=== PATIENT | male | born 1995 | race Caucasian/White ===

== ENCOUNTER 2019-08-28 14:52 | Emergency (ER) | payer BC, OTHER ==
[2019-08-28 15:28] VITALS: BP 131/68; PULSE 65; TEMP 98.8; BMI 26.4
--- NOTE | 2019-08-28 15:40 | PDOC ---
History of Present Illness - General History Source: Patient Exam Limitations: No Limitations - History of Present Illness Initial Comments: 08/28/19 15:43 24y M with no significant PMH presenting to the ED with complaints of laceration to the dorsal aspect of his R hand. 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 He denies numbness, tingling, difficulty with hand movements. He states there was bleeding but placed 2 bandages on. Last tetanus shot was 2y ago for a laceration to the palmar aspect of his L hand. Allergies: Nkda <Kristen Brown - Last Filed: 08/28/19 15:43> <Rajesh Camargo - Last Filed: 08/28/19 16:07> - General Chief Complaint: Injury Stated Complaint: rt hand laceration Time Seen by Provider: 08/28/19 14:57 Past History - Past Medical History COPD: No - Immunization History Immunization Up to Date: Yes - Psycho Social/Smoking Cessation Hx Smoking History: Never smoked Have you smoked in the past 12 months: No Information on smoking cessation initiated: No Hx Alcohol Use: No Drug/Substance Use Hx: No <Kristen Brown - Last Filed: 08/28/19 15:43> <Rajesh Camargo - Last Filed: 08/28/19 16:07> - Past Medical History Allergies/Adverse Reactions: Allergies Allergy/AdvReac Type Severity Reaction Status Date / Time No Known Allergies Allergy Verified 08/28/19 14:53 Home Medications: Ambulatory Orders NK [No Known Home Medication] 08/28/19 Review of Systems - Review of Systems Constitutional: No: Symptoms Reported HEENTM: No: Symptoms Reported Respiratory: No: Symptoms reported Cardiac (ROS): No: Symptoms Reported ABD/GI: No: Symptoms Reported : No: Symptoms Reported Musculoskeletal: No: Symptoms Reported Integumentary: Yes: See HPI Neurological: No: Symptoms reported <Kristen Brown - Last Filed: 08/28/19 15:43> *Physical Exam - Vital Signs Last Vital Signs Temp Pulse Resp BP Pulse Ox 98.8 F 65 20 131/68 100 08/28/19 14:53 08/28/19 14:53 08/28/19 14:53 08/28/19 14:53 08/28/19 14:53 - Physical Exam General Appearance: Yes: Nourished, Appropriately Dressed. No: Apparent Distress HEENT: positive: EOMI Comments:: 08/28/19 15:45 radial pulses 2+ Extremity: positive: Normal Capillary Refill, Other (Full ROM of R hand digits. ) Integumentary: positive: Normal Color, Dry, Warm, Other (2cm superficial lacertion to dorsal aspect of R hand. No tendons visible) Neurologic: positive: Alert, Other (normal sensation to digits of R hand) <Kristen Brown - Last Filed: 08/28/19 15:43> - Vital Signs Last Vital Signs Temp Pulse Resp BP Pulse Ox 98.8 F 65 20 131/68 100 08/28/19 14:53 08/28/19 14:53 08/28/19 14:53 08/28/19 14:53 08/28/19 14:53 <Rajesh Camargo - Last Filed: 08/28/19 16:07> Procedures - Laceration/Wound Repair Right Dorsal Hand Wound Length: to 2.5 cm Wound Explored: clean, no foreign body present Wound's Depth, Shape: superficial Irrigated w/ Saline: No Anesthesia: 1% Lidocaine Amount of Anesthetic (ccs): 2 Wound Repaired With: Sutures Suture Size/Type: 5:0 Number of Sutures: 5 <Kristen Brown - Last Filed: 08/28/19 15:43> Medical Decision Making - Medical Decision Making 08/28/19 15:47 24y M presenting to ED for laceration. See procedure note. Wound irrigated with tap water from sink. pt able to move fingers and hand without difficulty. Safe for dc home. Given return precautions. Does not require antibiotics or xray at this time. <Kristen Brown - Last Filed: 08/28/19 15:43> Discharge - Discharge Information Problems reviewed: Yes - Admission No <Kristen Brown - Last Filed: 08/28/19 15:43> <Rajesh Camargo - Last Filed: 08/28/19 16:07> - Discharge Information Clinical Impression/Diagnosis: Laceration, Hand injury, Accident involving knife Condition: Improved Disposition: HOME - Patient Discharge Instructions Patient Printed Discharge Instructions: DI for Laceration Repair Additional Instructions: You were seen in the emergency room today for a laceration to the back part of your right hand. It was repaired with 5 stitches. This can be removed in 10 days. You can come back here, go to another ER, urgent care or your doctor's office. It will appear more swollen and tender tomorrow. This is normal. You can take ibuprofen or Tylenol for the pain as needed. Keep the area clean and dry. You can clean it with water and mild soap only. Come back to the emergency room if the wound is oozing, appears infected or if any new concerning symptom develops. Thank you
--- NOTE | 2019-08-28 15:57 | PDOC ---
Attending Attestation - Resident Resident Name: Kristen Brown - ED Attending Attestation I have performed the following: I have examined & evaluated the patient, The case was reviewed & discussed with the resident, I agree w/resident's findings & plan, Exceptions are as noted - HPI HPI: 08/28/19 16:02 Agree with resident HPI - Physicial Exam PE: 08/28/19 16:02 GENERAL: Awake, alert, and fully oriented, in no acute distress EYES: Sclera anicteric, conjunctiva clear LUNGS: Breath sounds equal, clear to auscultation bilaterally. No wheezes, and no crackles HEART: Regular rate and rhythm, normal S1 and S2, no murmurs, rubs or gallops ABDOMEN: Soft, nontender, normoactive bowel sounds. No guarding, no rebound. No masses EXTREMITIES: R hand with normal strength extension, flexion and abduction of all digits. Normal distal sensation. WWP. NEUROLOGICAL: Normal speech, cranial nerves intact, equal strength and sensation b/l SKIN: 2cm linear hemostatic superficial laceration to mid dorsal area of R hand. Good approximation. - Medical Decision Making 08/28/19 16:05 24yo M presents to the ED with R dorsal hand laceration See Dr. Brown's note for details R hand NVI Tdap updated Pt to return in 10 days for suture removal He is clinically stalble for DC home I discussed the physical exam findings, ancillary test results and final diagnoses with the patient. I answered all of the patient's questions. The patient was satisfied with the care received and felt comfortable with the discharge plan and treatment plan. The patient will call their primary care physician within 24 hours to arrange follow-up and will return to the Emergency Department with any new, persistent or worsening symptoms.
== END 2019-08-28 15:40 | disposition home or self-care (01) ==
LOC: FER 14:52
PROC: 0HQFXZZ Repair Right Hand Skin, External Approach (ICD-10-PCS; principal; 2019-08-28)
DX: S61.411A Laceration without foreign body of right hand, initial encounter (principal); W26.0XXA Contact with knife, initial encounter; Y93.G1 Activity, food preparation and clean up; Y92.89 Other specified places as the place of occurrence of the external cause; Y99.0 Civilian activity done for income or pay
CPT/HCPCS: 99281-25

== ENCOUNTER 2019-09-08 18:06 | Emergency (ER) | payer SELFPAY ==
[2019-09-08 18:16] VITALS: BP 157/109; PULSE 73; TEMP 99; BMI 26.4
--- NOTE | 2019-09-08 18:19 | PDOC ---
Suture Removal/Wound Check HPI - History of Present Illness Chief Complaint: Suture/Staple Removal(Here) Stated Complaint: SUTURE REMOVAL Time Seen by Provider: 09/08/19 18:14 History Source: Yes: Patient Exam Limitations: Yes: No Limitations - Previous ED Treatment Type of procedure performed on last visit: Yes: Laceration Repair Tetanus Immunization: Yes: Up to Date Antibiotics Prescribed: No - Onset of Previous Treatment Comment:: 09/08/19 18:14 24 y/o male here for sutures to be removed on right hand placed 11 days ago. Patient cut hand with a knife. Redness has gone down. No pain or swelling. Feels fine otherwise. Past History - Past Medical History Allergies/Adverse Reactions: Allergies Allergy/AdvReac Type Severity Reaction Status Date / Time No Known Allergies Allergy Verified 08/28/19 14:53 Home Medications: Ambulatory Orders NK [No Known Home Medication] 08/28/19 COPD: No - Immunization History Immunization Up to Date: Yes - Psycho Social/Smoking Cessation Hx Smoking History: Never smoked Have you smoked in the past 12 months: No Hx Alcohol Use: No Drug/Substance Use Hx: No Suture Removal/Wound Check PE - Physical Exam Laceration/Wound Check Symptoms: reports: None Current Severity Level: None Location of Laceration/Wound: right: Hand (dorsum of right hand with [address], no erythema or swelling no tenderness or sign of infection noted) *Review of Systems - Review of Systems Able to Perform ROS?: Yes Constitutional: No: Chills, Fever Respiratory: No: Shortness of Breath Musculoskeletal: No: Joint Pain Integumentary: No: Bruising, Erythema, Pruritus, Rash Neurological: No: Tingling All Other Systems: Reviewed and Negative *Physical Exam - Physical Exam General Appearance: Yes: Nourished, Appropriately Dressed. No: Apparent Distress Respiratory/Chest: positive: Lungs Clear, Normal Breath Sounds Cardiovascular: positive: Regular Rhythm, Regular Rate, S1, S2. negative: Edema , JVD, Murmur Vascular Pulses: Femoral (R): 4+, Femoral (L): 4+, Carotid (R): 4+, Carotid (L) : 4+, Dorsalis-Pedis (R): 4+, Doralis-Pedis (L): 4+ Extremity: positive: Normal Capillary Refill, Normal Range of Motion. negative : Normal Inspection (laceration with no erythema [address]) Integumentary: positive: Normal Color, Dry, Warm Neurologic: positive: deck officer II-XII NML intact, Fully Oriented, Alert, Normal Mood/ Affect, Normal Response, Motor Strength 03/24 Medical Decision Making - Medical Decision Making 09/08/19 18:18 5 sutures removed using #11 blade, pt tolerated procedure well No dehescince or bleeding noted Discharge - Discharge Information Problems reviewed: Yes Clinical Impression/Diagnosis: Encounter for removal of sutures Condition: Good Disposition: HOME - Admission No - Follow up/Referral - Patient Discharge Instructions Patient Printed Discharge Instructions: DI for Suture Removal Additional Instructions: Keep clean If worsen return to ER - Post Discharge Activity
== END 2019-09-08 18:23 | disposition home or self-care (01) ==
LOC: FER 18:06
DX: Z48.02 Encounter for removal of sutures (principal)
CPT/HCPCS: 99281-25

== ENCOUNTER 2019-09-26 16:36 | Emergency (ER) | payer OTHER ==
--- NOTE | 2019-09-26 16:43 | PDOC ---
Attending Attestation - Resident Resident Name: FridaZay sorensen - ED Attending Attestation I have performed the following: I have examined & evaluated the patient, The case was reviewed & discussed with the resident, I agree w/resident's findings & plan, Exceptions are as noted - HPI HPI: 09/26/19 17:39 Patient with avulsion of distal pulp while cutting food. Bleeding. No pain. Tissue fragment was not recovered. - Physicial Exam PE: 09/26/19 17:40 Physical exam: Vital signs normal Right fourth finger: Approximately 7 to 8 mm avulsion of skin and subcutaneous tissue from the distal pulp, just volar to the nail plate. There is bleeding, but the underlying tissue appears healthy. There is no exposed bone. There is no significant nail damage. X-ray shows only soft tissue injury. No injury to the bone is visualized. Coverage of the bone on x-ray appears adequate - Medical Decision Making 09/26/19 17:42 Assessment: Superficial skin avulsion distal pulp right fourth finger Plan: Wound was irrigated with normal saline. Hemostasis with Surgicel. Bacitracin, Xeroform, 2 x 2, and tube gauze for dressing. Rest and elevation recommended and wound check in 2 days. Patient is up-to-date on tetanus immunization. Fully ambulatory and in no pain or distress upon discharge. Motrin for pain as needed.
[2019-09-26 16:46] VITALS: BP 150/98; PULSE 83; TEMP 98.3; BMI 25.7
--- NOTE | 2019-09-26 16:46 | PDOC ---
History of Present Illness - General Chief Complaint: Laceration Stated Complaint: I CUT MY FINGER Time Seen by Provider: 09/26/19 16:42 - History of Present Illness Initial Comments: The pt is a left-handed 24M w/ no reported PMH who presents for evaluation of right ring finger avulsion injury. The pt was chopping bread when he accidentally cut his right distal ring finger. He states the knife was sharp/ clean and he did not bring the cut fragment. He denies any other injury or laceration. His last tetanus was 1 year ago. Denies recent illness, fevers/chills, chest pain, trouble breathing, changes in sensation/strength SH: Denies tobacco and illicit drug use, social EtOH 09/26/19 17:03 Past History - Past Medical History Allergies/Adverse Reactions: Allergies Allergy/AdvReac Type Severity Reaction Status Date / Time No Known Allergies Allergy Verified 09/26/19 16:37 Home Medications: Ambulatory Orders NK [No Known Home Medication] 08/28/19 COPD: No - Immunization History Immunization Up to Date: Yes - Psycho Social/Smoking Cessation Hx Smoking History: Current every day smoker Have you smoked in the past 12 months: No Number of Cigarettes Smoked Daily: 7 Information on smoking cessation initiated: Yes Hx Alcohol Use: Yes (OCASIONAL) Drug/Substance Use Hx: No Review of Systems - Review of Systems Able to Perform ROS?: Yes Comments:: GENERAL/CONSTITUTIONAL: No fever or chills. No weakness HEAD, EYES, EARS, NOSE AND THROAT: No change in vision. No change in hearing. No sore throat CARDIOVASCULAR: No chest pain or shortness of breath RESPIRATORY: Denies cough, hemoptysis GASTROINTESTINAL: No nausea, vomiting, diarrhea or constipation GENITOURINARY: No dysuria, frequency, or change in urination MUSCULOSKELETAL: No joint or muscle swelling or pain. No neck or back pain SKIN: Avulsion of right ring finger NEUROLOGIC: No headache, vertigo, loss of consciousness, or change in strength/ sensation ENDOCRINE: No increased thirst. No abnormal weight change HEMATOLOGIC/LYMPHATIC: No anemia, easy bleeding, or history of blood clots ALLERGIC/IMMUNOLOGIC: No hives or skin allergy 09/26/19 16:45 Is the patient limited Chinese proficient: No *Physical Exam - Vital Signs Last Vital Signs Temp Pulse Resp BP Pulse Ox 98.3 F 83 16 150/98 100 09/26/19 16:36 09/26/19 16:36 09/26/19 16:36 09/26/19 16:36 09/26/19 16:36 - Physical Exam Comments: GENERAL: Awake, alert, and oriented to person/place/time, in no acute distress HEAD: No signs of trauma, normocephalic, atraumatic EYES: PERRLA, EOMI, sclera anicteric, conjunctiva clear ENT: Hearing grossly normal, nares patent, oropharynx clear without exudates. Moist mucosa LUNGS: No distress, speaks in full sentences, clear to auscultation bilaterally HEART: Regular rate and rhythm, normal S1 and S2, no murmurs appreciated, peripheral pulses normal and equal bilaterally ABDOMEN: Soft, nontender, normoactive bowel sounds. No guarding, no rebound EXTREMITIES: Right ring finger avulsion injury w/o exposed bone, slow bleed noted, sensation intact. No other extremity injury noted NEUROLOGICAL: Cranial nerves II through XII grossly intact. Normal speech, normal gait, no focal sensorimotor deficits SKIN: Warm, Dry 09/26/19 17:09 Medical Decision Making - Medical Decision Making The pt is a left-handed 24M w/ no reported PMH who presents for evaluation of right ring finger avulsion injury. ED Course R hand x-ray Tylenol for pain 09/26/19 17:10 XR w/ avulsion injury w/o foreign object or fx Wound dressed with surgiseal, xeroform, bacitracin, and gauze Plan for wound check in 2 days Discharge instructions and return precautions given Patient in agreement and verbalized understanding Dispo: Home 09/26/19 17:51 Discharge - Discharge Information Problems reviewed: Yes Clinical Impression/Diagnosis: Ring avulsion injury of finger of right hand Condition: Stable Disposition: HOME - Admission No - Follow up/Referral Referrals: [facility] [place] [Provider Group] - Patient Discharge Instructions Patient Printed Discharge Instructions: DI for Avulsion Laceration (Not Requiring Sutures) Additional Instructions: You were seen in the Emergency Department for evaluation of an avulsion injury. Your x-ray was negative for fracture. You need to return in two days for a wound check. Leave the dressing in place until that time. Review the handout provided at discharge. Return to the Emergency Department if you develop fevers, chest pain, trouble breathing, worsening pain, change in sensation, worsening symptoms, or any new/ concerning symptoms. - Post Discharge Activity Work/Back to School Note: Back to Work
[2019-09-26] MEDS ORDERED: ACETAMINOPHEN 325 MG TABLET (FP) PO ONE (17:02)
[2019-09-26] MEDS ORDERED: ACETAMINOPHEN 325 MG TABLET (FP) ONE (17:11)
== END 2019-09-26 18:01 | disposition home or self-care (01) ==
LOC: FER 16:36
PROC: 0HQFXZZ Repair Right Hand Skin, External Approach (ICD-10-PCS; principal; 2019-09-26)
DX: S61.214A Laceration without foreign body of right ring finger without damage to nail, initial encounter (principal); W26.0XXA Contact with knife, initial encounter; Y93.G1 Activity, food preparation and clean up; Y92.9 Unspecified place or not applicable; F17.210 Nicotine dependence, cigarettes, uncomplicated
CPT/HCPCS: 73130-TC-RT-FY; 99282-25

== ENCOUNTER 2019-09-28 17:25 | Emergency (ER) | payer OTHER ==
[2019-09-28 17:33] VITALS: BP 145/74; PULSE 93; TEMP 98.4; BMI 25.7
--- NOTE | 2019-09-28 17:45 | PDOC ---
Suture Removal/Wound Check HPI - History of Present Illness Chief Complaint: Revisit,Wound Recheck Stated Complaint: WOUND CHECK Time Seen by Provider: 09/28/19 17:27 History Source: Yes: Patient Exam Limitations: Yes: No Limitations Treated at: [facility] ED Date of Last ED visit: 09/26/19 - Previous ED Treatment Type of procedure performed on last visit: Yes: Other (avulsion injury to R hand ring finger) Tetanus Immunization: Yes: Up to Date - Onset of Previous Treatment Date of Occurence: 09/26/19 Comment:: 09/28/19 17:46 24yo male with no pmhx with R hand ring finger avulsion injury with a knife at work on 09/26. Works as a pantry chef. Clean knife. tetanus utd. Pt denies all complaints, told to come back for a wound check. Pt arrives with a dressing in place. Pt dressing c/d/i. Pt denies redness, drainage, pain. Pt denies all other complaints. Pmhx: denies Pshx: denies All: nkda Tetanus UTD Past History - Past Medical History Allergies/Adverse Reactions: Allergies Allergy/AdvReac Type Severity Reaction Status Date / Time No Known Allergies Allergy Verified 09/28/19 17:26 Home Medications: Ambulatory Orders NK [No Known Home Medication] 08/28/19 COPD: No - Immunization History Immunization Up to Date: Yes - Psycho Social/Smoking Cessation Hx Smoking History: Current some day smoker Have you smoked in the past 12 months: Yes Number of Cigarettes Smoked Daily: 3 Information on smoking cessation initiated: Yes 'Breaking Loose' booklet given: 09/26/19 Hx Alcohol Use: (occasional) Drug/Substance Use Hx: No *Review of Systems - Review of Systems Able to Perform ROS?: Yes Constitutional: No: Chills, Fever HEENTM: No: Nose Pain, Nose Congestion Respiratory: No: Cough, Shortness of Breath Cardiac (ROS): No: Chest Pain ABD/GI: No: Diarrhea, Nausea, Vomiting, Abdominal cramping : No: Burning Musculoskeletal: No: Back Pain, Joint Pain, Joint Swelling Integumentary: Yes: Other (avulsion injury R 4th digit) Neurological: No: Headache All Other Systems: Reviewed and Negative *Physical Exam - Vital Signs Last Vital Signs Temp Pulse Resp BP Pulse Ox 98.4 F 93 H 16 145/74 100 09/28/19 17:26 09/28/19 17:26 09/28/19 17:26 09/28/19 17:26 09/28/19 17:26 - Physical Exam General Appearance: Yes: Nourished, Appropriately Dressed. No: Apparent Distress HEENT: positive: Normal Voice Respiratory/Chest: positive: Lungs Clear, Normal Breath Sounds. negative: Respiratory Distress Cardiovascular: positive: Regular Rhythm, Regular Rate, S1, S2 Gastrointestinal/Abdominal: positive: Soft. negative: Guarding, Rebound, Tenderness Extremity: positive: Normal Capillary Refill, Other (R hand 4th digit with avulsion wound to tip of finger, no bleeding, no surrounding erythema, no drainage, no fluctuance, no ttp) Integumentary: positive: Other (avulsion injury to R ring finger with healing started) Neurologic: positive: Fully Oriented, Alert, Normal Mood/Affect Medical Decision Making - Medical Decision Making 09/28/19 17:49 a/p: 24yo male with no pmhx who is L hand dominant with R ring finger avulsion injury 2 days ago here for a wound check. Wound is healing well. No drainage. No signs of infection. New dressing applied. bacitracin applied tetanus utd stable for dc to home and follow up with pmd Discharge - Discharge Information Problems reviewed: Yes Clinical Impression/Diagnosis: Ring avulsion injury of finger of right hand Condition: Stable Disposition: HOME - Admission No - Follow up/Referral Referrals: Yassine Burdick MD [Staff Physician] - - Patient Discharge Instructions Patient Printed Discharge Instructions: DI for Avulsion Laceration (Not Requiring Sutures) Additional Instructions: Please keep the wound clean and dry. Please keep the wound covered while at work. Please continue to apply topical antibiotic cream to the wound. Please wash with soap and water and pat dry. Please follow up with the hand specialist. Please return to the ED with any further concerns or complaints. - Post Discharge Activity
== END 2019-09-28 17:55 | disposition home or self-care (01) ==
LOC: FER 17:25
CPT/HCPCS: 99282-25